=== PATIENT | male | born 1985 | race African-American/Black ===

== ENCOUNTER 2025-01-26 02:52 | Emergency (ER) | payer SELFPAY | END 2025-01-26 04:00 | disposition left against medical advice (07) | LOC: ER 03:05 | DX: R51.9 Headache, unspecified (principal); R10.9 Unspecified abdominal pain; K08.89 Other specified disorders of teeth and supporting structures; Z53.21 Procedure and treatment not carried out due to patient leaving prior to being seen by health care provider ==

== ENCOUNTER 2025-02-06 01:32 | Emergency (ER) | payer SELFPAY ==
[~2025-02-06] VITALS: Ht 182.9 cm; Wt 77.1 kg
[2025-02-06 06:54] VITALS: BP 125/65; TEMP 98; O2SAT 100
== END 2025-02-06 06:54 | disposition home or self-care (01) ==
LOC: ER 01:38
DX: F20.9 Schizophrenia, unspecified (principal); G47.00 Insomnia, unspecified; Z59.00 Homelessness unspecified
CPT/HCPCS: A4606; A4663